=== PATIENT | male | born 1990 | race African-American/Black ===

== ENCOUNTER 2022-11-28 11:35 | Emergency (ER) | payer OTHER ==
[~2022-11-28] VITALS: Ht 170.2 cm; Wt 62.0 kg
[~2022-11-28 11:35] MED LIST: ALBU05 NEB; ALBU6.7H15 INH; ALBUTEROL
[2022-11-28 11:37] VITALS: TEMP 98
[2022-11-28] MEDS ORDERED: IPRATROPIUM BROMIDE (0.02%) 0.5MG/2.5ML NEB HHN STA (12:42)
[2022-11-28] MEDS ORDERED: PREDNISONE 20MG TABLET PO STA (12:42)
[2022-11-28] MEDS ORDERED: ALBUTEROL (0.083%) 2.5MG/3ML NEB HHN STA (12:42)
[2022-11-28 13:10] VITALS: PULSE 78; RESP 24; O2SAT 97
[2022-11-28] MEDS ORDERED: ALBU6.7H3 INH (14:31)
[2022-11-28] MEDS ORDERED: P20 MT (14:31)
[2022-11-28 14:48] VITALS: BP 117/74; PULSE 101; RESP 14
== END 2022-11-28 14:49 | disposition home or self-care (01) ==
LOC: ER 11:35
DX: J45.901 Unspecified asthma with (acute) exacerbation (principal); F12.10 Cannabis abuse, uncomplicated
CPT/HCPCS: 94644; 99285; J7512; Z7610 ×3